=== PATIENT | female | born 1965 | race Caucasian/White ===

== ENCOUNTER 2019-11-28 12:08 | Emergency (ER) | payer OTHER ==
[~2019-11-28] VITALS: Ht 167.6 cm; Wt 78.5 kg
[2019-11-28] MEDS ORDERED: cloNIDine HCL 0.1 MG TAB PO ONE (13:15)
[2019-11-28 13:18] LABS: Urine WBC None Seen /hpf (0 - 5)
[2019-11-28 13:25] LABS: Urine Bacteria NONE SEEN /hpf (None Seen); Urine Blood Negative /uL (Negative); Urine Specific Gravity 1.003 (1.001-1.035)
[2019-11-28 14:18] LABS: Basophils # (auto) 0 uL; Basophils % (auto) 0.4 % (0.0-2.0); Eosinophils # (auto) 0.1 uL; Eosinophils % (auto) 0.6 % (0.0-7.0); Hematocrit 50.2 % (36.0-46.0); Lymphocytes # (auto) 2.4 uL; Lymphocytes % (auto) 20.6 % (10.0-50.0); Mean Corpuscular Hemoglobin 31.5 pg (28.0-32.0); Mean Corpuscular Hgb Conc. 33.8 g/dL (32.0-36.0); Mean Corpuscular Volume 93.1 fL (80.0-100.0); Monocytes # (auto) 0.6 uL; Neutrophils # (auto) 8.5 uL; Neutrophils % (auto) 73.4 % (37.0-80.0); Nucleated Red Blood Cells % 0.1 %; Platelet Count (auto) 252 10^3/uL (140-450); Red Blood Cells 5.39 10^6/uL (4.0-5.20); Red Cell Distribution Width 13.2 % (11.8-14.3); White Blood Cell 11.6 10^3/uL (4.4-10.8)
[2019-11-28 14:36] LABS: Albumin 4.4 g/dL (3.4-5.0); Calcium 9.1 mg/dL (8.5-10.1)
[2019-11-28 14:41] LABS: BUN/Creatinine Ratio 19.2; Bilirubin, Total 0.7 mg/dL (0.2-1.0)
[2019-11-28 16:32] VITALS: BP 159/94
== END 2019-11-28 17:38 | disposition home or self-care (01) ==
LOC: ER 12:08
DX: I10 Essential (primary) hypertension (principal); F41.9 Anxiety disorder, unspecified; F17.210 Nicotine dependence, cigarettes, uncomplicated; Z88.2 Allergy status to sulfonamides; Z88.0 Allergy status to penicillin; Z88.6 Allergy status to analgesic agent
CPT/HCPCS: 36415; 80053; 81001; 85025

== ENCOUNTER 2019-12-07 13:20 | Emergency (ER) | payer OTHER ==
[~2019-12-07] VITALS: Ht 167.6 cm; Wt 77.1 kg
[2019-12-07 14:07] LABS: Basophils # (auto) 0.1 uL; Basophils % (auto) 0.7 % (0.0-2.0); Eosinophils # (auto) 0 uL; Eosinophils % (auto) 0.2 % (0.0-7.0); Hematocrit 48.3 % (36.0-46.0); Hemoglobin 16.1 g/dL (12.2-16.2); Lymphocytes # (auto) 2.1 uL; Lymphocytes % (auto) 17.2 % (10.0-50.0); Mean Corpuscular Hemoglobin 30.9 pg (28.0-32.0); Mean Corpuscular Hgb Conc. 33.4 g/dL (32.0-36.0); Mean Corpuscular Volume 92.6 fL (80.0-100.0); Monocytes # (auto) 0.4 uL; Monocytes % (auto) 3.5 % (0.0-12.0); Neutrophils # (auto) 9.6 uL; Neutrophils % (auto) 78.4 % (37.0-80.0); Platelet Count (auto) 263 10^3/uL (140-450); Red Blood Cells 5.21 10^6/uL (4.0-5.20); Red Cell Distribution Width 13.1 % (11.8-14.3); White Blood Cell 12.3 10^3/uL (4.4-10.8)
[2019-12-07 14:21] LABS: Albumin 4.4 g/dL (3.4-5.0); Anion Gap 9 (5-15); Blood Urea Nitrogen 10 mg/dL (7-18); Calcium 8.9 mg/dL (8.5-10.1); Carbon Dioxide 22 mmol/L (21-32); Chloride 104 mmol/L (98-107); Glucose 103 mg/dL (74-106); Potassium 3.7 mmol/L (3.5-5.1); Sodium 135 mmol/L (136-145)
[2019-12-07 14:26] LABS: Alanine Aminotransferase 30 U/L (13-56); Alkaline Phosphatase 59 U/L (45-117); Aspartate Aminotransferase 10 U/L (15-37); Bilirubin, Total 1.1 mg/dL (0.2-1.0); GFR African American 116 mL/min; GFR Non-African American 96 mL/min; Total Protein 7.8 g/dL (6.4-8.2)
[2019-12-07 14:48] LABS: BUN/Creatinine Ratio 14.7
[2019-12-07 16:14] LABS: Urine WBC None Seen /hpf (0 - 5)
[2019-12-07] MEDS ORDERED: LABETALOL HCL 5 MG/ML 4ML SYRINGE IV ONE (16:15)
[2019-12-07 16:23] LABS: Urine Bacteria NONE SEEN /hpf (None Seen); Urine Blood Negative /uL (Negative); Urine Specific Gravity 1.002 (1.001-1.035)
[2019-12-07 17:04] VITALS: BP 157/65
== END 2019-12-07 17:15 | disposition home or self-care (01) ==
LOC: ER 13:20
DX: I10 Essential (primary) hypertension (principal); F17.210 Nicotine dependence, cigarettes, uncomplicated; Z88.0 Allergy status to penicillin; Z88.1 Allergy status to other antibiotic agents; Z88.2 Allergy status to sulfonamides; Z98.51 Tubal ligation status; Z90.89 Acquired absence of other organs
CPT/HCPCS: 36415; 71046; 80053; 81001; 84484; 85025; 93005; 96374; 99285; J3490

== ENCOUNTER 2021-12-30 20:34 | Emergency (ER) | payer OTHER ==
[~2021-12-30] VITALS: Ht 167.6 cm; Wt 102.1 kg
[2021-12-30 21:27] LABS: Basophils # (auto) 0.1 10 ^3/uL (0-0.2); Basophils % (auto) 1.1 % (0.0-2.0); Eosinophils # (auto) 0.2 10 ^3/uL (0-0.8); Eosinophils % (auto) 2.2 % (0.0-7.0); Hematocrit 36.9 % (36.0-46.0); Hemoglobin 12.4 g/dL (12.2-16.2); Lymphocytes % (auto) 26.4 % (10.0-50.0); Mean Corpuscular Hemoglobin 29.4 pg (28.0-32.0); Mean Corpuscular Hgb Conc. 33.6 g/dL (32.0-36.0); Mean Corpuscular Volume 87.6 fL (80.0-100.0); Monocytes # (auto) 0.8 10 ^3/uL (0-1.3); Monocytes % (auto) 6.6 % (0.0-12.0); Neutrophils # (auto) 7.3 10 ^3/uL (1.6-8.6); Neutrophils % (auto) 63.7 % (37.0-80.0); Red Blood Cells 4.21 10^6/uL (4.0-5.20); Red Cell Distribution Width 14.1 % (11.8-14.3); White Blood Cell 11.4 10^3/uL (4.4-10.8)
[2021-12-30] MEDS ORDERED: IOHEXOL 300 MG/ML 100ML BOTTLE IJ ONE (21:40)
[2021-12-30 21:44] LABS: Calcium 9.7 mg/dL (8.5-10.1); Potassium 4.3 mmol/L (3.5-5.1)
[2021-12-30 21:46] LABS: BUN/Creatinine Ratio 23.9
[2021-12-30 21:49] LABS: Bilirubin, Total 0.4 mg/dL (0.2-1.0); Total Protein 7.3 g/dL (6.4-8.2)
[2021-12-30 21:55] LABS: Magnesium 2.4 mg/dL (1.6-2.6)
[2021-12-31 02:15] LABS: Urine Bacteria NONE SEEN /hpf (None Seen); Urine Blood Negative /uL (Negative); Urine Specific Gravity 1.005 (1.001-1.035); Urine WBC <1 /hpf (0 - 5)
[2021-12-31 05:17] VITALS: BP 134/86
== END 2021-12-31 03:44 | disposition home or self-care (01) ==
LOC: ER 20:34
DX: R55 Syncope and collapse (principal); I10 Essential (primary) hypertension; F12.10 Cannabis abuse, uncomplicated; Z98.51 Tubal ligation status; Z90.89 Acquired absence of other organs; Z59.00 Homelessness unspecified; Z88.0 Allergy status to penicillin; Z88.2 Allergy status to sulfonamides; Z88.8 Allergy status to other drugs, medicaments and biological substances
CPT/HCPCS: 36415; 70450; 71046; 80053; 81001; 83735; 83880; 84484; 85025; 93005; 99285; Q9967

== ENCOUNTER → 2022-07-24 | Emergency (ER) | payer SELFPAY | END | disposition left against medical advice (07) | LOC: EDBD 18:20 → EDUNIT# 18:20 → ER 18:20 | DX: M79.10 Myalgia, unspecified site (principal); Z53.21 Procedure and treatment not carried out due to patient leaving prior to being seen by health care provider ==